=== PATIENT | female | born 1980 | race African-American/Black ===

== ENCOUNTER 2017-03-16 19:14 | Emergency (ER) | payer BC ==
[~2017-03-16] VITALS: Ht 162.6 cm; Wt 90.7 kg
[~2017-03-16 19:14] MED LIST: CIPROFLOXACIN500 M1 PO; DIFLUCAN150 MG PO; IBUPROFEN 600600 M1 PO; KEFLEX500 MG PO; NOHOMEMEDICATIONS; NORCO 5-325 TA1 EACH PO; ULTRAM 50MG TAB50 MG PO; ZOFRAN ODT4 MG PO
[2017-03-16] MEDS ORDERED: IBUPROFEN 600600 M1 PO (20:08)
[2017-03-16] MEDS ORDERED: HYDROCODONE-AP1 EAC6 PO (20:09)
== END 2017-03-16 20:46 | disposition home or self-care (01) ==
LOC: ER 19:14
DX: M25.561 Pain in right knee (principal)

== ENCOUNTER 2018-02-20 17:18 | Emergency (ER) | payer OTHER ==
[~2018-02-20] VITALS: Ht 162.6 cm; Wt 108.9 kg
[~2018-02-20 17:18] MED LIST changes: +HYDROCODONE-AP1 EAC6 PO
[2018-02-20 18:11] LABS: URINE BILIRUBIN NEGATIVE (Negative); URINE BLOOD TRACE (Negative); URINE CLARITY CLEAR; URINE COLOR YELLOW; URINE GLUCOSE-RANDOM* NEGATIVE (Negative); URINE KETONES NEGATIVE (Negative); URINE LEUKOCYTES-REFLEX NEGATIVE (Negative); URINE NITRITE-REFLEX NEGATIVE (Negative); URINE PROTEIN (DIPSTICK) NEGATIVE (Negative); URINE SPECIFIC GRAVITY 1.015 (1.005-1.035); URINE UROBILINOGEN 0.2 E.U./dl (0.2-1.0)
[2018-02-20 18:40] LABS: ALBUMIN 3.4 g/dL (3.4-5.0); TOTAL BILIRUBIN 0.2 mg/dL (<0.1-1.0); TOTAL PROTEIN 6.9 g/dL (6.4-8.2)
[2018-02-20] MEDS ORDERED: TRAMADOL 50 MG50 MG PO (18:44)
[2018-02-20] MEDS ORDERED: NAPROSYN500 MG PO (18:44)
== END 2018-02-20 19:10 | disposition home or self-care (01) ==
LOC: ER 17:18
PROVIDERS: Emergency Medicine
DX: R60.0 Localized edema (principal); M79.604 Pain in right leg; M79.605 Pain in left leg